=== PATIENT | male | born 1985 | race Caucasian/White ===

== ENCOUNTER 2023-03-11 12:43 | Emergency (ER) | payer SELFPAY ==
[~2023-03-11 12:43] MED LIST: Iopamidol 370 76% 100 ML VIAL ONE
[2023-03-11] MEDS ORDERED: Pantoprazole 40 MG VIAL ONE (13:42)
[2023-03-11] MEDS ORDERED: Ondansetron PF 4 MG/2 ML Vial ONE (13:42)
[2023-03-11] MEDS ORDERED: Ketorolac Tromethamine 30 MG/ML VIAL ONE (13:42)
[2023-03-11 13:47] LABS: #Basophils 0.1 thou/uL (0.0-0.2); #Eosinphils 0.1 thou/uL (0.0-0.7); #Lymphocytes 0.6 thou/uL (1.20-3.40); #Monocytes 0.4 thou/uL (0.11-0.59); #Neutrophils 6.9 thou/uL (1.40-6.50); %Basophils 0.9 % (0.0-1.0); %Eosinophils 0.7 % (0.0-10.0); %Lymphocytes 7.3 % (21.0-51.0); %Monocytes 5.5 % (0.0-10.0); %Neutrophils 85.6 % (42.0-75.0); Hematocrit 47.2 % (42.0-52.0); Hemoglobin 15.5 g/dL (14.0-18.0); Mean Corpuscular HGB CONC 32.9 g/dL (32.0-36.0); Mean Corpuscular Hemoglobin 31.1 pg (27.0-31.0); Mean Corpuscular Volume 94.4 fl (78.0-98.0); Mean Platelet Volume 5.3 fL (7.4-10.4); Platelet Count 192 10x3/uL (130-400); RBC Distribution Width 11.8 % (11.5-14.5); White Blood Cell (WBC) Count 8.1 10x3/uL (4.8-10.8)
[2023-03-11 14:06] LABS: ALT (SGPT) 108 U/L (8-55); AST (SGOT) 73 U/L (5-34); Albumin 4.8 g/dL (3.5-5.0); Alkaline Phosphatase 140 U/L (40-110); Anion Gap 24 mmol/L (10-20); BUN (Urea Nitrogen) 18 mg/dL (8.9-20.6); Bilirubin, Total 1.8 mg/dL (0.2-1.2); Calc. Creatinine Clearance 0 mL/min (70-130); Calcium 10.2 mg/dL (7.8-10.44); Carbon Dioxide 21 mmol/L (22-29); Chloride 99 mmol/L (98-107); Estimated GFR 101; Globulin 3.9 g/dL (2.4-3.5); Glucose 97 mg/dL (70-105); Lipase 34 U/L (8-78); Potassium 4.1 mmol/L (3.5-5.1); Protein, Total 8.7 g/dL (6.0-8.3); Sodium 140 mmol/L (136-145)
[2023-03-11 14:07] LABS: Troponin I 0.011 ng/mL (< 0.028)
== END 2023-03-11 15:16 | disposition home or self-care (01) ==
LOC: BURERS 12:43
DX: S22.41XA Multiple fractures of ribs, right side, initial encounter for closed fracture (principal); K92.0 Hematemesis; F17.210 Nicotine dependence, cigarettes, uncomplicated; W22.8XXA Striking against or struck by other objects, initial encounter; Y93.68 Activity, volleyball (beach) (court)
CPT/HCPCS: 71260; 80053; 83690; 84484; 85025; 96361; 96374; 96375; C9113; J1885; J2405; Q9967